=== PATIENT | female | born 1980 | race Caucasian/White ===

== ENCOUNTER → 2021-07-09 14:29 | Outpatient (CLI) | payer OTHER, SELFPAY ==
[2021-07-09 15:13] LABS: COVID19 -Nasal RAPID Negative (Negative)
== END ==
PROVIDERS: Visit Provider Nurse Practitioner Family
DX: R53.83 Other fatigue (principal); R50.9 Fever, unspecified; R30.0 Dysuria
CPT/HCPCS: 87077; 87086; 87186; 87635